=== PATIENT | female | born 1945 | race Caucasian/White ===

== ENCOUNTER 2024-12-26 09:14 | Observation (INO) ==
[2024-12-26] MEDS: NOZIN NASAL SANITIZER TP ONE (09:38)
[2024-12-26] MEDS: NS 1,000 ML IV 1,000 ML ONE (09:38)
[2024-12-26] MEDS: DIPRIVAN VIAL 20 ML ONE ×2 (10:06→10:07)
[2024-12-26] MEDS: PEPCID 20 MG VIAL ONE (10:09)
[2024-12-26] MEDS: ZOFRAN INJ 4 MG VIAL ONE (10:09)
[2024-12-26] MEDS: NS 1,000 ML IV 300 ML IV PRN (10:10)
[2024-12-26] MEDS: ANCEF VIAL 1 GRAM ONE (10:11)
[2024-12-26] MEDS: ZOFRAN INJ 4 MG VIAL IVP PRN (10:11)
[2024-12-26] MEDS: BETADINE SOLN ONE (10:11)
[2024-12-26] MEDS: NS 100 ML IV 100 ML ONE (10:11)
[2024-12-26] MEDS: PEPCID 20 MG VIAL IVP PRN (10:11)
[2024-12-26] MEDS: ANCEF VIAL 1 GRAM IV PRN (10:15)
[2024-12-26] MEDS: XYLOCAINE 2 % (PLAIN) INJ PRN (10:19)
[2024-12-26] MEDS: DIPRIVAN VIAL 350 ML IVP PRN (10:20)
[2024-12-26] MEDS: MARCAINE 0.5% ONE (10:30)
[2024-12-26] MEDS: POLYMYXIN B SULFATE ONE (10:30)
[2024-12-26] MEDS: LEVAQUIN PREMIX IV 500 MG 500 MG/100 ML BAG IV ONE (10:33)
[2024-12-26] MEDS: LEVAQUIN PREMIX IV 500 MG 500 MG/100 ML BAG IV PRN (10:37)
[2024-12-26] MEDS: NEO-SYNEPHRINE INJ IVP PRN (10:46)
--- NOTE | 2024-12-26 11:00 | RAD ---
EXAM:CHEST, 1 VIEWHISTORY:PRE-OP FOR IRRIGATION AND ULCER DEBRIDMENT;COMPARISON:No relevant prior studies were available for comparison at the time of interpretation.TECHNIQUE:CHEST, 1 VIEWFINDINGS:Chest:Lines and tubes: Right sided implanted port with tip in satisfactory position.Mediastinum: Cardiac and mediastinal shadow is within normal limits for size and contour.Pulmonary vessels: No pulmonary vascular congestion.Lung major: No suspicious airspace opacity.Pleura: No effusion. No pneumothorax.Bones and soft tissues: No acute osseous or soft tissue abnormality.IMPRESSION:1. No acute cardiopulmonary abnormalityTHIS IS AN ELECTRONICALLY VERIFIED FINAL REPORT12/26/2024 10:57 AM - Electronically signed by Won Doe MD
[2024-12-26 11:20] VITALS: BMI 25.0
[2024-12-26] MEDS: D5 1/2 NS 1,000 ML 1,000 ML IV SCH (12:11)
[2024-12-26] MEDS: ANCEF VIAL 1 GRAM IVP SCH (14:02)
[2024-12-27 05:16] LABS: MEAN PLATELET VOLUME 6.7 fL (7.4-11.0); NEUTROPHILS % (AUTO) 79.7 % (42.0-75.0)
[2024-12-27 05:33] LABS: BASOPHILS % (AUTO) 0.5 % (0.2-1.0); EOSINOPHILS % (AUTO) 0.3 % (0.9-2.9); HEMATOCRIT 30.9 % (36.0-47.0); HEMOGLOBIN 10.7 g/dL (12.0-16.0); LYMPHOCYTES % (AUTO) 11.9 % (21.0-51.0); MEAN CORPUSCULAR HEMOGLOBIN 26.7 pg (27.0-34.0); MEAN CORPUSCULAR HGB CONC 34.8 g/dL (33.0-35.0); MEAN CORPUSCULAR VOLUME 76.7 fL (80.0-100.0); MONOCYTES # (AUTO) 0.6 x10^3/uL (0.3-0.8); MONOCYTES % (AUTO) 7.6 % (0.0-13.0); NEUTROPHILS # (AUTO) 6.6 x10^3/uL (2.2-4.8); PLATELET COUNT 637 X10^3/uL (150.0-450.0); RED BLOOD COUNT 4.03 X10^6/uL (3.5-5.4); RED CELL DISTRIBUTION WIDTH 16.6 % (11.6-16.5); WHITE BLOOD COUNT 8.3 X10^3/uL (3.6-10.0)
[2024-12-27 05:36] LABS: ALANINE AMINOTRANSFERASE 11 Units/L (12-78); ALBUMIN 1.2 g/dL (3.4-5.0); ALKALINE PHOSPHATASE 60 Units/L (46-116); ASPARTATE AMINO TRANSFERASE 19 Units/L (15-37); BLOOD UREA NITROGEN 11 mg/dL (7-18); CALCIUM 8.6 mg/dL (8.5-10.1); CARBON DIOXIDE 27.6 mmol/L (21-32); CHLORIDE 102 mmol/L (98-107); COR CA(FOR HYPOALB) 10.8 mg/dL (8.5-10.1); COR NA(FOR HYPERGLY) 137 mmol/L (136-145); CREATININE 0.67 mg/dL (0.55-1.02); GLUCOSE 131 mg/dL (65-99); SODIUM 136 mmol/L (136-145); TOTAL PROTEIN 4.8 g/dL (6.4-8.2); eGFR NON BLACK RACES > 60 (>60)
[2024-12-27] MEDS ORDERED: CONSULT PHARMACY - POTASSIUM & MAGNESIUM XX SCH ×3 (06:00→18:00)
--- NOTE | 2024-12-27 08:38 | DR.PROGNOT ---
HOSPITAL PROGRESS NOTE Progress Note for Day of: Progress Note Date: 12/27/24 Chief Complaint Chief Complaint: Patient is s/p debridement of sacral ulcer 6 x 6 x 2 cm, Patient seems to be comfortable with no complaint today. Afebrile and stable vital signs Her lab work was within normal limits.. Dressing is intact, no actively bleeding. Will arrange for wound VAC, discharged the patient today and follow in 1 month. Past Medical Family Social History Allergies: Allergies codeine Allergy (Unknown, Verified 12/18/24 16:06) Reason: Drug allergy aspirin Allergy (Verified 12/18/24 16:06) Vital Signs Vital Signs: Vital Signs Temperature 97.9 F Pulse Rate 102 Respiratory Rate 16 Blood Pressure 119/58 O2 Sat by Pulse Oximetry 99 Physical Exam Oriented: Normal Eyes: Normal Ear: Normal Nose: Normal Throat: Normal Respiratory: Normal Cardiovascular: Normal GI:Auscultation: Normal GI:Palpation: Normal Skin: Other (Sacral ulcer 6 x 6 x 2 cm, no necrosis or abscess formation.) Mood Description: Calm Speech Pattern: Clear and Appropriate Laboratory and Diagnostics 12/27/24 04:45 12/27/24 04:45 Labs: 12/26/24 10:35 Sacral Wound Gram Stain - Final Laboratory WBC 8.3 X10^3/uL (3.6-10.0) 12/27/24 04:45 RBC 4.03 X10^6/uL (3.5-5.4) 12/27/24 04:45 Hgb 10.7 g/dL (12.0-16.0) L 12/27/24 04:45 Hct 30.9 % (36.0-47.0) L 12/27/24 04:45 MCV 76.7 fL (80.0-100.0) L 12/27/24 04:45 MCH 26.7 pg (27.0-34.0) L 12/27/24 04:45 MCHC 34.8 g/dL (33.0-35.0) 12/27/24 04:45 RDW 16.6 % (11.6-16.5) H 12/27/24 04:45 Plt Count 637 X10^3/uL (150.0-450.0) H 12/27/24 04:45 MPV 6.7 fL (7.4-11.0) L 12/27/24 04:45 Neut % (Auto) 79.7 % (42.0-75.0) H 12/27/24 04:45 Lymph % (Auto) 11.9 % (21.0-51.0) L 12/27/24 04:45 [place] % (Auto) 7.6 % (0.0-13.0) 12/27/24 04:45 Eos % (Auto) 0.3 % (0.9-2.9) L 12/27/24 04:45 Baso % (Auto) 0.5 % (0.2-1.0) 12/27/24 04:45 Neut # (Auto) 6.6 x10^3/uL (2.2-4.8) H 12/27/24 04:45 Lymph # (Auto) 1.0 X10^3/uL (1.3-2.9) L 12/27/24 04:45 [place] # (Auto) 0.6 x10^3/uL (0.3-0.8) 12/27/24 04:45 Eos # (Auto) 0.0 x10^3/uL (0.0-0.2) 12/27/24 04:45 Baso # (Auto) 0.0 X10^3/uL (0.0-0.1) 12/27/24 04:45 Absolute Nucleated RBC 0.0 /100WBC 12/27/24 04:45 Sodium 136 mmol/L (136-145) 12/27/24 04:45 Corrected Sodium 137 mmol/L (136-145) 12/27/24 04:45 Potassium 3.0 mmol/L (3.5-5.1) L 12/27/24 04:45 Chloride 102 mmol/L (98-107) 12/27/24 04:45 Carbon Dioxide 27.6 mmol/L (21-32) 12/27/24 04:45 BUN 11 mg/dL (7-18) 12/27/24 04:45 Creatinine 0.67 mg/dL (0.55-1.02) 12/27/24 04:45 Est GFR (MDRD) Af Amer > 60 (>60) 12/27/24 04:45 Est GFR (MDRD) Non-Af > 60 (>60) 12/27/24 04:45 Glucose 131 mg/dL (65-99) H 12/27/24 04:45 POC Glucose (mg/dL) 85 mg/dL (65-99) 12/26/24 09:42 Calcium 8.6 mg/dL (8.5-10.1) 12/27/24 04:45 Corrected Calcium 10.8 mg/dL (8.5-10.1) H 12/27/24 04:45 Magnesium 0.7 mg/dL (2.0-2.9) L 12/27/24 04:45 Total Bilirubin 0.30 mg/dL (0.2-1.0) 12/27/24 04:45 AST 19 Units/L (15-37) 12/27/24 04:45 ALT 11 Units/L (12-78) L 12/27/24 04:45 Alkaline Phosphatase 60 Units/L (46-116) 12/27/24 04:45 Total Protein 4.8 g/dL (6.4-8.2) L 12/27/24 04:45 Albumin 1.2 g/dL (3.4-5.0) L 12/27/24 04:45 Globulin 3.6 g/dL (2.5-4.5) 12/27/24 04:45 Albumin/Globulin Ratio 0.3 Ratio (1.1-2.1) L 12/27/24 04:45 Assessment and Plan 1: Sacral decubitus ulcer, 6 x 6 x 2 cm stage II and III, To arrange for wound VAC.
[2024-12-27] MEDS ORDERED: K-DUR TAB 20 MEQ PO SCH (09:00)
[2024-12-27] MEDS: K-DUR TAB 20 MEQ PO SCH (09:39)
[2024-12-27] MEDS: D5 1/2 NS + KCL 20 MEQ/L 1,000 ML IV SCH (11:41)
[2024-12-27 13:14] LABS: BILIRUBIN,URINE NEGATIVE (NEGATIVE); BLOOD/HEMOGLOBIN,URINE NEGATIVE (NEGATIVE); GLUCOSE, URINE NEGATIVE (NEGATIVE); KETONES,URINE 2+ (NEGATIVE); LEUKOCYTE ESTERASE ,URINE 2+ (NEGATIVE); NITRITES,URINE NEGATIVE (NEGATIVE); PROTEIN,URINE 2+ (NEGATIVE); UROBILINOGEN,URINE NORMAL (NORMAL)
[2024-12-27 13:26] LABS: APPEARANCE,URINE SLIGHTLY HAZY (CLEAR); COLOR,URINE YELLOW (YELLOW); RBC,URINE NONE SEEN /HPF (0-3); SQUAMOUS EPITHELIAL CELL,UR RARE /HPF (NEGATIVE)
[2024-12-27 13:27] LABS: BACTERIA,URINE TRACE /HPF (NEGATIVE); YEAST,URINE MODERATE /HPF (NEGATIVE)
[2024-12-27] MEDS: 1/2 NS IV SCH (17:51)
[2024-12-27] MEDS: D5 IV SCH (17:51)
[2024-12-27] MEDS: KCL IV SCH (17:51)
[2024-12-27] MEDS: MAGNESIUM SULFATE IV SCH (17:51)
[2024-12-27] MEDS: MAG-OX TAB PO ONE (17:53)
[2024-12-27] MEDS: CIPRO TAB 500 MG PO SCH (17:53)
[2024-12-27] MEDS ORDERED: ROCEPHIN VIAL 1 GRAM 1 G in NS 100 ML IV 100 ML IV SCH (18:00)
[2024-12-27] MEDS: MAGNESIUM SULFATE 1 GRAM/100 mL PREMIX 1 G/100 ML BAG IV SCH (18:44)
[2024-12-27] MEDS ORDERED: MAGNESIUM SULFATE 1 GRAM/100 mL PREMIX 1 G/100 ML BAG IV ONE ×2 (19:31→20:16)
[2024-12-28] MEDS: MAGNESIUM SULFATE 1 GRAM/100 mL PREMIX 0 G/0 ML BAG IV ONE (01:00)
[2024-12-28 04:48] VITALS: O2SAT 97
[2024-12-28 04:58] LABS: BASOPHILS % (AUTO) 0.6 % (0.2-1.0); EOSINOPHILS % (AUTO) 0.6 % (0.9-2.9); HEMATOCRIT 31.5 % (36.0-47.0); HEMOGLOBIN 10.7 g/dL (12.0-16.0); LYMPHOCYTES # (AUTO) 1.2 X10^3/uL (1.3-2.9); LYMPHOCYTES % (AUTO) 17.6 % (21.0-51.0); MEAN CORPUSCULAR HEMOGLOBIN 25.7 pg (27.0-34.0); MEAN CORPUSCULAR HGB CONC 33.9 g/dL (33.0-35.0); MEAN CORPUSCULAR VOLUME 75.9 fL (80.0-100.0); MEAN PLATELET VOLUME 6.9 fL (7.4-11.0); MONOCYTES # (AUTO) 0.4 x10^3/uL (0.3-0.8); MONOCYTES % (AUTO) 5.5 % (0.0-13.0); NEUTROPHILS # (AUTO) 5.1 x10^3/uL (2.2-4.8); NEUTROPHILS % (AUTO) 75.7 % (42.0-75.0); PLATELET COUNT 714 X10^3/uL (150.0-450.0); RED BLOOD COUNT 4.14 X10^6/uL (3.5-5.4); RED CELL DISTRIBUTION WIDTH 16.5 % (11.6-16.5); WHITE BLOOD COUNT 6.8 X10^3/uL (3.6-10.0)
[2024-12-28 05:11] LABS: ALANINE AMINOTRANSFERASE < 6 Units/L (12-78); ALBUMIN 1.3 g/dL (3.4-5.0); ALKALINE PHOSPHATASE 69 Units/L (46-116); ASPARTATE AMINO TRANSFERASE 20 Units/L (15-37); BLOOD UREA NITROGEN 8 mg/dL (7-18); CALCIUM 8.5 mg/dL (8.5-10.1); CARBON DIOXIDE 27.7 mmol/L (21-32); CHLORIDE 99 mmol/L (98-107); COR CA(FOR HYPOALB) 10.7 mg/dL (8.5-10.1); COR NA(FOR HYPERGLY) 134 mmol/L (136-145); CREATININE 0.79 mg/dL (0.55-1.02); GLUCOSE 128 mg/dL (65-99); MAGNESIUM 1.8 mg/dL (2.0-2.9); SODIUM 133 mmol/L (136-145); TOTAL PROTEIN 5.3 g/dL (6.4-8.2); eGFR NON BLACK RACES > 60 (>60)
[2024-12-28 05:14] LABS: POTASSIUM 2.9 mmol/L (3.5-5.1)
[2024-12-28] MEDS ORDERED: CONSULT PHARMACY - POTASSIUM & MAGNESIUM XX SCH (06:00)
[2024-12-28] MEDS ORDERED: K-RIDER 10 MEQ/100 ML WATER 10 MEQ/100 ML BAG IV SCH (08:00)
[2024-12-28] MEDS: MAG-OX TAB PO SCH (08:15)
[2024-12-28] MEDS: K-DUR TAB 20 MEQ PO SCH (08:15)
[2024-12-28 08:30] VITALS: RESP 17
[2024-12-28] MEDS: NORCO 5/325 MG TAB PO PRN (08:30)
[2024-12-28 08:49] VITALS: BP 111/58; PULSE 97; TEMP 99.4
[2024-12-28] MEDS ORDERED: K-DUR TAB 20 MEQ PO SCH (09:00)
== END 2024-12-28 09:25 | disposition home health service (06) ==
LOC: ICU 09:14 → SURG1 09:14
PROVIDERS: ADMIT Surgery; ATTEND Surgery